=== PATIENT | male | born 1995 | race African-American/Black ===

== ENCOUNTER 2025-02-09 03:52 | Emergency (ER) | payer MEDICAID ==
[~2025-02-09] VITALS: Ht 188 cm; Wt 77.1 kg
[2025-02-09] MEDS ORDERED: CEFTRIAXONE 500 MG VIAL ONE (04:28)
[2025-02-09] MEDS ORDERED: AZITHROMYCIN 250 MG TABLET ONE (04:30)
[2025-02-09] MEDS ORDERED: LIDOCAINE /MPF 1% VIAL 5 ML VIAL ONE (04:33)
[2025-02-09] MEDS: CEFTRIAXONE 500 MG VIAL IM ONE (04:33)
[2025-02-09] MEDS: AZITHROMYCIN 250 MG TABLET PO ONE (04:33)
[2025-02-09 04:40] VITALS: BP 118/76; TEMP 98.4; O2SAT 97
[2025-02-11 07:07] LABS: CHLAMYDIA TRACHOMATIS NAA Negative (Negative)
[2025-02-11 09:12] LABS: NEISSERIA GONORRHOEAE NAA Positive (Negative)
== END 2025-02-09 04:41 | disposition home or self-care (01) ==
LOC: ER 04:03
DX: R30.0 Dysuria (principal)
CPT/HCPCS: 99283; 96372; 87491; 87591; J0696; J3490